=== PATIENT | female | born 1955 | race Caucasian/White ===

== ENCOUNTER 2023-07-05 12:39 | Day surgery (SDC) | payer OTHER ==
[2023-07-04 13:28] VITALS: BMI 31.9
== END 2023-07-05 15:10 | disposition home or self-care (01) ==
LOC: SDC 12:39
PROVIDERS: ATTEND Internal Medicine Gastroenterology
DX: R13.19 Other dysphagia (principal); K21.9 Gastro-esophageal reflux disease without esophagitis; M19.90 Unspecified osteoarthritis, unspecified site; I10 Essential (primary) hypertension; Z53.9 Procedure and treatment not carried out, unspecified reason; Z88.0 Allergy status to penicillin; Z91.011 Allergy to milk products; Z88.8 Allergy status to other drugs, medicaments and biological substances
CPT/HCPCS: 93005; 93010

== ENCOUNTER 2023-07-19 10:37 | Outpatient (CLI) | payer OTHER | END 2023-07-19 10:38 | disposition home or self-care (01) | LOC: RAD 10:37 | PROVIDERS: ATTEND Physician Assistant Medical | DX: R13.19 Other dysphagia (principal) | CPT/HCPCS: 74220 ==

== ENCOUNTER → 2023-07-19 | Day surgery (SDC) | payer OTHER ==
[~2023-07-19] MED LIST: Lidocaine Jelly 2% Urojet 10 ML ONE
== END ==
LOC: SDC 12:00
PROVIDERS: ATTEND Internal Medicine Gastroenterology
PROC: 4A0B88Z Measurement of Gastrointestinal Motility, Via Natural or Artificial Opening Endoscopic (ICD-10-PCS; principal; 2023-07-19)
DX: R13.19 Other dysphagia (principal); Z88.0 Allergy status to penicillin; Z88.8 Allergy status to other drugs, medicaments and biological substances
CPT/HCPCS: 91010; J2001